=== PATIENT | female | born 1995 | race Caucasian/White ===

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

== ENCOUNTER → 2017-08-23 | Outpatient (REF) | payer BC ==
[2017-08-23 14:08] LABS: REASON FOR REVIEW WBC/LEUKEMIA/BLAST; SLIDE REVIEW Report; SOURCE PERIPHERAL SMEAR
[2017-08-23 14:31] LABS: VITAMIN B12 LEVEL 210 PG/ML (247-911)
[2017-08-25 00:06] LABS: HOMOCYST(E)INE SERUM 8.2 umol/L (0.0-15.0)
[2017-08-25 00:06] LABS: SOLUBLE TRANSFERRIN RECEPTOR 14.5 nmol/L (12.2-27.3)
== END ==
LOC: M LAB REF 12:59
DX: D64.9 Anemia, unspecified (principal)
CPT/HCPCS: 82607

== ENCOUNTER → 2017-09-07 | Outpatient (REF) | payer BC ==
[2017-09-07 17:50] LABS: FREE T4 1.12 NG/DL (0.78-1.33)
== END ==
LOC: M LAB REF 16:38
DX: D70.9 Neutropenia, unspecified (principal)
CPT/HCPCS: 84443

== ENCOUNTER 2017-10-09 09:08 | Day surgery (SDC) | payer BC ==
[2017-10-09] MEDS: NS 1,000 ML IV (09:30)
[2017-10-09] MEDS ORDERED: PROPOFOL 200 MG/20 ML VIAL As Ordered (11:46)
== END 2017-10-09 13:37 | disposition home or self-care (01) ==
LOC: M OPP 09:08
DX: R63.4 Abnormal weight loss (principal); R10.13 Epigastric pain; K63.3 Ulcer of intestine; K64.8 Other hemorrhoids; K29.70 Gastritis, unspecified, without bleeding; K21.9 Gastro-esophageal reflux disease without esophagitis; D64.9 Anemia, unspecified; Z79.899 Other long term (current) drug therapy
CPT/HCPCS: 45380

== ENCOUNTER → 2019-10-23 | Outpatient (CLI) | payer BC ==
[~2019-10-23] MED LIST: APRITAB PO; CYAN500T8 PO; GABA-843 PO; IRON65TA PO; PANT40TA3 PO
--- NOTE | 2019-10-24 22:04 | SLEEPMSLT ---
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 For the nocturnal portion of testing, 9 hours and 16 minutes of data were reviewed. There were 5 hours and 10.5 minutes of sleep identified. Sleep latency was normal at 9.5 minutes. Rapid eye movement (REM) latency was short at 52.5 minutes. Sleep architecture was good with five REM cycles. Overall sleep efficiency was 92.7%. The patient's electrocardiogram showed a sinus rhythm with small complexes, average heart rate 56 beats per minute. Rate ranged 50-75. EEG showed some alpha intrusion into non-REM stages. No focal events were appreciated. There was only one respiratory event identified of 10 seconds in duration or greater for an apnea-hypopnea index of 0.1, snoring was noted intermittently during the study. Respiratory related arousals occurred 1.5 times per hour. There were no oxygen desaturations below 90%. There was some limb activity. No trains of events were identified. On this occasion, the limb movement arousal index was 7.4 per hour (increased from 2.7 on the previous study). The nocturnal portion of testing was followed by multiple sleep latency testing. Four nap opportunities were offered at 2-hour intervals and sleep was appreciated on four out of four nap opportunities. The EEG portion of the daytime nap study was once again coarse. Mean sleep latency was 6.5 minutes. There was no evidence of sleep onset REM seen during naps. IMPRESSION: Normal nocturnal polysomnography with snoring and multiple sleep latency testing indicating a mean sleep latency of 6.5 minutes, which is in the bowers zone for hypersomnia. 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
== END ==
LOC: M SLEEP 19:00
PROVIDERS: ATTEND Nurse Practitioner Family
DX: R40.0 Somnolence (principal); R06.83 Snoring

== ENCOUNTER → 2021-07-28 | Outpatient (CLI) | payer BC ==
[~2021-07-28] MED LIST changes: +CYAN500T14 PO; -CYAN500T8 PO; +GABA-282 PO; -GABA-843 PO; +PANT40TA29 PO; -PANT40TA3 PO
[2021-07-28 17:54] LABS: HEMATOCRIT 34.7 % (36.0-47.0); HEMOGLOBIN 11.3 g/dl (12.0-15.5); MEAN CORPUSCULAR HGB CONC 32.6 g/dl (32.0-36.5); MEAN CORPUSCULAR VOLUME 95.3 fl (80.0-96.0); PLATELET COUNT, AUTOMATED 309 10^3/uL (150-450); RED BLOOD COUNT 3.64 10^6/uL (4.00-5.40); WHITE BLOOD COUNT 9.7 10^3/uL (4.0-10.0)
[2021-07-28 19:05] LABS: HEPATITIS C VIRUS ABY INDEX < 0.0 INDEX (<0.8); HIV 1&2 SCREEN CENTAUR NEGATIVE (NEGATIVE)
== END ==
LOC: M PLALAB 15:25
PROVIDERS: ATTEND Advanced Practice Midwife
DX: Z34.83 Encounter for supervision of other normal pregnancy, third trimester (principal)

== ENCOUNTER → 2021-08-24 | Outpatient (CLI) | payer BC | LOC: M WHC 09:11 | PROVIDERS: ATTEND Obstetrics & Gynecology | DX: O44.43 Low lying placenta NOS or without hemorrhage, third trimester (principal); Z3A.39 39 weeks gestation of pregnancy ==

== ENCOUNTER → 2022-10-04 | Outpatient (CLI) | payer BC ==
[2022-10-04 17:35] LABS: HEMATOCRIT 36.7 % (36.0-47.0); HEMOGLOBIN 12.2 g/dl (12.0-15.5); MEAN CORPUSCULAR HEMOGLOBIN 30.6 pg (27.0-33.0); MEAN CORPUSCULAR HGB CONC 33.2 g/dl (32.0-36.5); PLATELET COUNT, AUTOMATED 261 10^3/uL (150-450); RED BLOOD COUNT 3.99 10^6/uL (4.00-5.40); WHITE BLOOD COUNT 5.2 10^3/uL (4.0-10.0)
[2022-10-04 17:59] LABS: HIV 1&2 SCREEN CENTAUR NEGATIVE (NEGATIVE)
[2022-10-04 19:08] LABS: GC DNA AMPLIFICATION NEGATIVE (NEGATIVE)
== END ==
LOC: M PLALAB 14:55
PROVIDERS: ATTEND Advanced Practice Midwife
DX: Z34.91 Encounter for supervision of normal pregnancy, unspecified, first trimester (principal)

== ENCOUNTER → 2022-12-07 | Outpatient (CLI) | payer BC | LOC: M WHC 12:48 | PROVIDERS: ATTEND Obstetrics & Gynecology | DX: Z34.92 Encounter for supervision of normal pregnancy, unspecified, second trimester (principal); Z3A.20 20 weeks gestation of pregnancy ==

== ENCOUNTER → 2023-02-20 | Outpatient (CLI) | payer BC ==
[2023-02-20 13:54] LABS: HEMATOCRIT 33.6 % (36.0-47.0); HEMOGLOBIN 10.9 g/dl (12.0-15.5); MEAN CORPUSCULAR HEMOGLOBIN 30.1 pg (27.0-33.0); MEAN CORPUSCULAR HGB CONC 32.4 g/dl (32.0-36.5); MEAN CORPUSCULAR VOLUME 92.8 fl (80.0-96.0); PLATELET COUNT, AUTOMATED 236 10^3/uL (150-450); RED BLOOD COUNT 3.62 10^6/uL (4.00-5.40); WHITE BLOOD COUNT 6.5 10^3/uL (4.0-10.0)
== END ==
LOC: M PLALAB 09:48
PROVIDERS: ATTEND Advanced Practice Midwife
DX: Z34.82 Encounter for supervision of other normal pregnancy, second trimester (principal)

== ENCOUNTER → 2023-03-28 | Outpatient (REF) | payer BC | LOC: M PLALAB 13:45 | PROVIDERS: ATTEND Obstetrics & Gynecology | DX: Z36.85 Encounter for antenatal screening for Streptococcus B (principal); Z3A.36 36 weeks gestation of pregnancy ==

== ENCOUNTER 2023-04-27 06:22 | Inpatient (IN) | payer BC ==
[~2023-04-27] VITALS: Ht 175.3 cm; Wt 87.0 kg
[2023-04-27] VITALS (31 sets, daily range): BP systolic 89–134; BP diastolic 52–87; O2SAT 98–100
[2023-04-27] MEDS ORDERED: PRENTAB9 PO (06:43)
[2023-04-27] MEDS ORDERED: HOME MED LIST COMPLETE! XX SCH (06:45)
[2023-04-27] MEDS ORDERED: OXYTOCIN DRIP 30 UNITS in IV 1 EA IV PRN (08:25)
[2023-04-27] MEDS ORDERED: LIDOCAINE 1% MDV 20ML VIAL INFIL PRN (08:25)
[2023-04-27 09:28] LABS: HEMATOCRIT 33.4 % (36.0-47.0); HEMOGLOBIN 10.9 g/dl (12.0-15.5); MEAN CORPUSCULAR HEMOGLOBIN 29.5 pg (27.0-33.0); MEAN CORPUSCULAR HGB CONC 32.6 g/dl (32.0-36.5); MEAN CORPUSCULAR VOLUME 90.3 fl (80.0-96.0); PLATELET COUNT, AUTOMATED 265 10^3/uL (150-450); WHITE BLOOD COUNT 8.5 10^3/uL (4.0-10.0)
[2023-04-27] MEDS ORDERED: OXYTOCIN DRIP 30 UNITS in IV 1 EA IV SCH (09:40)
[2023-04-27] MEDS: LR 1,000 ML IV SCH ×2 (10:18→12:15)
[2023-04-27] MEDS ORDERED: LR 500 ML IV PRN (12:25)
[2023-04-27] MEDS ORDERED: ONDANSETRON 4MG 2ML VIAL IV PRN (12:25)
[2023-04-27] MEDS ORDERED: NALOXONE INJ 0.4MG/1ML VIAL IV PRN (12:25)
[2023-04-27] MEDS ORDERED: EPIDURAL/PCA KEYS XX PRN (12:25)
[2023-04-27] MEDS ORDERED: FENTANYL/ROPIVACAINE/NACL BAG 100 ML EPIDURAL SCH (12:25)
[2023-04-27] MEDS ORDERED: diphenhydrAMINE 50MG/ML VIAL IV PRN (12:25)
[2023-04-27] MEDS ORDERED: ePHEDrine SULFATE 25 MG/5 ML(5MG/ML) SYRINGE IVP PRN (12:25)
[2023-04-27] MEDS ORDERED: FENTANYL 2MCG/ML ROPIVACAINE 0.2% IN 0.9% NACL 100ML IVBAG As Ordered ONE (12:27)
[2023-04-27] MEDS ORDERED: DIBUCAINE 1% OINTMENT 30GM TOP PRN (18:05)
[2023-04-27] MEDS ORDERED: IBUPROFEN 800 MG TAB PO PRN (18:05)
[2023-04-27] MEDS ORDERED: ACETAMINOPHEN TAB 650MG DOSE (2X325MG) PO PRN (18:05)
[2023-04-27] MEDS ORDERED: METHYLERGONOVINE MALEATE 0.2 MG TAB PO PRN (18:05)
[2023-04-27] MEDS ORDERED: IBUPROFEN 600MG TAB PO PRN (18:05)
[2023-04-27] MEDS ORDERED: ACETAMINOPHEN 500 MG TAB PO PRN (18:05)
[2023-04-27] MEDS ORDERED: DOCUSATE SODIUM 100MG CAPSULE PO PRN (18:05)
[2023-04-27] MEDS ORDERED: RHOGAM 300MCG (1500IU) INJ IM SCH (18:05)
[2023-04-28 06:00] VITALS: BP 114/74; O2SAT 98
[2023-04-28] MEDS ORDERED: PRENATAL VITAMINS CHEWABLE TABLET PO SCH (09:00)
[2023-04-29] MEDS ORDERED: MEASLES,MUMPS,RUBELLA VACCINE INJ (MMR-II) SC.IMMUN ONE (09:00)
== END 2023-04-28 15:34 | disposition home or self-care (01) | DRG 560 ==
LOC: M LDO 06:22 → M LDI 07:49 → M OBS 16:23
PROVIDERS: ADMIT Specialist; ATTEND Specialist
PROC: 10E0XZZ Delivery of Products of Conception, External Approach (ICD-10-PCS; principal; 2023-04-27)
DX: O48.0 Post-term pregnancy (principal); Z37.0 Single live birth; Z3A.40 40 weeks gestation of pregnancy

== ENCOUNTER → 2024-09-06 | Outpatient (CLI) | payer BC ==
[~2024-09-06] MED LIST changes: +GABA-1172 PO; -GABA-282 PO; +PRENTAB9 PO
== END ==
LOC: M PLALAB 12:24
PROVIDERS: ATTEND Advanced Practice Midwife
DX: O20.9 Hemorrhage in early pregnancy, unspecified (principal)

== ENCOUNTER → 2024-09-09 | Outpatient (CLI) | payer BC | LOC: M PLALAB 11:59 | PROVIDERS: ATTEND Advanced Practice Midwife | DX: O20.9 Hemorrhage in early pregnancy, unspecified (principal) ==

== ENCOUNTER → 2024-10-16 | Outpatient (CLI) | payer BC | LOC: M PLALAB 14:05 | PROVIDERS: ATTEND Nurse Practitioner Family | DX: Z32.00 Encounter for pregnancy test, result unknown (principal) ==

== ENCOUNTER → 2024-11-06 | Outpatient (CLI) | payer BC ==
[2024-11-06 15:46] LABS: HEMATOCRIT 38.5 % (36.0-47.0); HEMOGLOBIN 12.4 g/dl (12.0-15.5); MEAN CORPUSCULAR HEMOGLOBIN 29.1 pg (27.0-33.0); MEAN CORPUSCULAR HGB CONC 32.2 g/dl (32.0-36.5); MEAN CORPUSCULAR VOLUME 90.4 fl (80.0-96.0); PLATELET COUNT, AUTOMATED 294 10^3/uL (150-450); RED BLOOD COUNT 4.26 10^6/uL (4.00-5.40); WHITE BLOOD COUNT 7.9 10^3/uL (4.0-10.0)
[2024-11-06 16:30] LABS: HIV 1&2 SCREEN NEGATIVE (NEGATIVE)
[2024-11-06 16:37] LABS: Trichomonas vaginalis (AMP) NOT DETECTED (NEGATIVE)
[2024-11-06 16:38] LABS: HEPATITIS C VIRUS ABY INDEX 0.08 INDEX (<0.8)
[2024-11-06 17:01] LABS: GC DNA AMPLIFICATION NEGATIVE (NEGATIVE)
== END ==
LOC: M PLALAB 13:40
PROVIDERS: ATTEND Nurse Practitioner Family
DX: Z34.80 Encounter for supervision of other normal pregnancy, unspecified trimester (principal); Z3A.00 Weeks of gestation of pregnancy not specified

== ENCOUNTER → 2025-01-21 | Outpatient (CLI) | payer BC | LOC: M WHC 09:52 | PROVIDERS: ATTEND Nurse Practitioner Family | DX: Z34.82 Encounter for supervision of other normal pregnancy, second trimester (principal); Z3A.19 19 weeks gestation of pregnancy ==

== ENCOUNTER → 2025-03-03 | Outpatient (CLI) | payer BC ==
[2025-03-03 16:01] LABS: PLATELET COUNT, AUTOMATED 257 10^3/uL (150-450)
[2025-03-03 16:11] LABS: GLUCOSE CHALLENGE TEST 1 HOUR 115 MG/DL (LESS THAN 140)
[2025-03-03 16:41] LABS: HIV 1&2 SCREEN NEGATIVE (NEGATIVE)
[2025-03-03 16:49] LABS: HEPATITIS C VIRUS ABY INDEX < 0.02 INDEX (<0.8)
[2025-03-03 16:57] LABS: Trichomonas vaginalis (AMP) NOT DETECTED (NEGATIVE)
[2025-03-03 17:20] LABS: GC DNA AMPLIFICATION NEGATIVE (NEGATIVE)
== END ==
LOC: M PLALAB 10:14
PROVIDERS: ATTEND Student in an Organized Health Care Education/Training Program
DX: Z34.80 Encounter for supervision of other normal pregnancy, unspecified trimester (principal)

== ENCOUNTER → 2025-04-04 | Outpatient (CLI) | payer BC | LOC: M WHC 09:54 | PROVIDERS: ATTEND Nurse Practitioner Family | DX: Z34.83 Encounter for supervision of other normal pregnancy, third trimester (principal); Z3A.30 30 weeks gestation of pregnancy ==

== ENCOUNTER → 2025-05-16 | Outpatient (REF) | payer BC | LOC: M PLALAB 10:36 | PROVIDERS: ATTEND Nurse Practitioner Family | DX: O09.293 Supervision of pregnancy with other poor reproductive or obstetric history, third trimester (principal); Z3A.36 36 weeks gestation of pregnancy ==